=== PATIENT | female | born 1960 | race Caucasian/White ===

== ENCOUNTER 2019-08-13 08:05 | Outpatient (CLI) | payer OTHER ==
--- NOTE | 2019-08-13 17:14 | MRI ---
MRI BILATERAL BREASTS WITH AND WITHOUT CONTRAST: History: Bloody nipple discharge. Comparison: Mammogram from 07-20-19, outside facility. FINDINGS: Multiplanar, multisequence MRI of the breasts was performed prior to and after the intravenous admini stration of contrast. Exam was reviewed on an independent 3D work station. The breasts are predominately fatty. Interval background parenchymal enhancement. Normal enhancement of the nipple areolar complex bilaterally. Normal zones of superficial linear enha ncement, normal appearing of the nonenhancing zone, abnormal appearance of internal nipple enhancemen t. In the right breast at 12 o'clock there is an abnormally distended duct with internal enhancement. Th is internal enhancement is somewhat serpiginous within a total length of approximately 1 cm of duct w hich does extend to the nipple. This is at 6 o'clock, anterior depth approximately 2.5 cm from the ni pple. The interval enhancement as well as extension to the nipple is best seen on the sagittal high r es images, right sided, series 8 image 136. This abnormal focus of enhancement does have internal type III kinetics and is well seen on the MIP s equence. The axilla are without adenopathy. Marrow signal of the visualized ribs and sternum are normal. No ab normal hepatic enhancement. No internal mammary adenopathy. IMPRESSION: 1. BIRADS IV: Suspicious. Abnormal ductal dilatation and internal enhancement 6 o'clock anterior duct , 2.5 cm from the nipple with the dilated duct extending to the nipple. Surgical consultation is advi sed to evaluate for intraductal mass. Additionally, an ultrasound could be performed to evaluate for intraductal mass. POS: OFF
== END 2019-08-13 08:06 | disposition home or self-care (01) ==
LOC: BICMRI 08:05
PROVIDERS: ATTEND Surgery
DX: N64.52 Nipple discharge (principal); N64.89 Other specified disorders of breast
CPT/HCPCS: A9577; C8908

== ENCOUNTER 2019-11-05 08:08 | Outpatient (CLI) | payer BC ==
[2019-11-05 14:01] LABS: #Basophils 0.1 thou/uL (0.0-0.2); #Eosinphils 0.1 thou/uL (0.0-0.7); #Lymphocytes 1.8 thou/uL (1.20-3.40); #Monocytes 0.9 thou/uL (0.11-0.59); #Neutrophils 9.8 thou/uL (1.40-6.50); %Basophils 0.5 % (0.0-1.0); %Eosinophils 0.6 % (0.0-10.0); %Lymphocytes 14.5 % (21.0-51.0); %Monocytes 6.7 % (0.0-10.0); %Neutrophils 77.7 % (42.0-75.0); Hemoglobin 14.7 g/dL (12.0-16.0); Mean Corpuscular HGB CONC 34.7 g/dL (32.0-36.0); Mean Corpuscular Hemoglobin 31.5 pg (27.0-31.0); Mean Corpuscular Volume 90.8 fL (78.0-98.0); Mean Platelet Volume 7.8 fL (7.4-10.4); Platelet Count 204 thou/uL (130-400); RBC Distribution Width 11.4 % (11.5-14.5); Red Blood Cell (RBC) Count 4.67 mill/uL (4.20-5.40); White Blood Cell (WBC) Count 12.6 thou/uL (4.8-10.8)
[2019-11-05 14:29] LABS: Anion Gap 13 mmol/L (10-20); BUN (Urea Nitrogen) 13 mg/dL (9.8-20.1); Calc. Creatinine Clearance 0 mL/min (70-130); Calcium 9.2 mg/dL (7.8-10.44); Carbon Dioxide 26 mmol/L (22-29); Chloride 104 mmol/L (98-107); Estimated GFR-MDRD 76; Glucose 128 mg/dL (70-105); Potassium 3.9 mmol/L (3.5-5.1); Sodium 139 mmol/L (136-145)
== END 2019-11-05 08:09 | disposition home or self-care (01) ==
LOC: LABBT 08:08
PROVIDERS: ATTEND Surgery
DX: Z01.812 Encounter for preprocedural laboratory examination (principal); N64.52 Nipple discharge
CPT/HCPCS: 80048; 85025